=== PATIENT | female | born 1990 | race Asian ===

== ENCOUNTER 2018-09-20 10:03 | Emergency (ER) | payer SELFPAY ==
[~2018-09-20] VITALS: Ht 160 cm; Wt 81.8 kg
[2018-09-20 12:31] VITALS: BP 135/67; PULSE 87; TEMP 98.9
== END 2018-09-20 12:31 | disposition home or self-care (01) ==
LOC: COL.ER 10:03 → EDSEX 10:06 → COL.ER 12:31
DX: S51.812A Laceration without foreign body of left forearm, initial encounter (principal); Z23 Encounter for immunization; W26.0XXA Contact with knife, initial encounter; Y92.219 Unspecified school as the place of occurrence of the external cause